=== PATIENT | male | born 1965 | race African-American/Black ===

== ENCOUNTER 2019-09-12 09:26 | Outpatient (CLI) | payer OTHER ==
[2019-09-12] MEDS ORDERED: Magnevist 469MG/ML 20 ML VIAL ONE (11:37)
--- NOTE | 2019-09-12 12:23 | MRI ---
MRI Pelvis W WO Con History: C 59 prostate cancer. Comparison: None. Findings: Multiplanar multisequence MRI of the prostate was performed prior to and after the intraven ous ministration of contrast. The exam was reviewed on an independent 3-D workstation. The prostate measures 4.7 x 3.7 x 3.5 cm for a volume of 30.6 cc. Peripheral zone: There are no abnormal foci of diffusion restriction. Transitional zone: No abnormal lentiform focus of T2 signal abnormality. Prostatic capsule: Intact Neurovascular bundles: Intact Urinary bladder: Mildly trabeculated. Seminal vesicles: Intact Bones: On the large [id number] T1 weighted sequence there are no abnormal foci of marrow signal re placement to suggest osseous metastatic disease. Moderate degenerative changes of the pubic symphysis. Impression: 1. PI-RADS Category 2: Low (clinically significant prostate cancer is unlikely to be present). 2. Intact prostate capsule and neurovascular bundles. 3. No evidence for locoregional osseous or lymphatic metastatic disease.
== END 2019-09-12 09:27 | disposition home or self-care (01) ==
LOC: TBSIIMAG 09:26
PROVIDERS: ATTEND Urology
DX: C61 Malignant neoplasm of prostate (principal)
CPT/HCPCS: 72197; A9579

== ENCOUNTER 2019-11-22 14:46 | Observation (INO) | payer OTHER ==
--- NOTE | 2019-11-22 15:12 | RAD ---
Exam: Chest one view HISTORY:Chest pressure Comparison: None FINDINGS: Cardiac silhouette: Normal Aorta: Unremarkable Pulmonary vessels: Normal Costophrenic angles: Clear LUNGS: No masses or consolidation. Pneumothorax: None Osseous abnormalities: None IMPRESSION: No acute cardiopulmonary process.
[2019-11-22 15:13] LABS: #Basophils 0.1 thou/uL (0.0-0.2); #Eosinphils 0.2 thou/uL (0.0-0.7); #Lymphocytes 1.2 thou/uL (1.20-3.40); #Monocytes 0.6 thou/uL (0.11-0.59); #Neutrophils 4.2 thou/uL (1.40-6.50); %Basophils 1.3 % (0.0-1.0); %Eosinophils 2.6 % (0.0-10.0); %Lymphocytes 19.8 % (21.0-51.0); %Neutrophils 67.3 % (42.0-75.0); Hemoglobin 13.1 g/dL (14.0-18.0); Mean Corpuscular HGB CONC 33.1 g/dL (32.0-36.0); Mean Corpuscular Hemoglobin 29.8 pg (27.0-31.0); Mean Corpuscular Volume 89.9 fL (78.0-98.0); Mean Platelet Volume 7.6 fL (7.4-10.4); Platelet Count 216 thou/uL (130-400); RBC Distribution Width 13.1 % (11.5-14.5); Red Blood Cell (RBC) Count 4.39 mill/uL (4.70-6.10); White Blood Cell (WBC) Count 6.2 thou/uL (4.8-10.8)
[2019-11-22 15:34] LABS: ALT (SGPT) 25 U/L (8-55); AST (SGOT) 27 U/L (5-34); Albumin 4.2 g/dL (3.5-5.0); Alkaline Phosphatase 50 U/L (40-110); Anion Gap 12 mmol/L (10-20); BUN (Urea Nitrogen) 12 mg/dL (8.4-25.7); Bilirubin, Total 0.4 mg/dL (0.2-1.2); CK (CPK) 248 U/L (30-200); Calc. Creatinine Clearance 0 mL/min (70-130); Calcium 9.4 mg/dL (7.8-10.44); Carbon Dioxide 26 mmol/L (22-29); Chloride 103 mmol/L (98-107); Estimated GFR-MDRD 81; Globulin 3.1 g/dL (2.4-3.5); Glucose 110 mg/dL (70-105); Lipase 77 U/L (8-78); Potassium 4.3 mmol/L (3.5-5.1); Protein, Total 7.3 g/dL (6.0-8.3); Sodium 137 mmol/L (136-145)
[2019-11-22] MEDS ORDERED: Acetaminophen 325 MG TAB PO PRN ×2 (18:27→19:00)
[2019-11-22] MEDS ORDERED: Ondansetron PF 4 MG/2 ML Vial IVP PRN ×2 (18:27→19:00)
[2019-11-22] MEDS ORDERED: Ondansetron ODT 4 MG TAB SL PRN (18:27)
[2019-11-22 18:33] LABS: Troponin I Less than 0.010 ng/mL (< 0.028)
[2019-11-22 18:59] VITALS: BMI 23.4
[2019-11-22] MEDS ORDERED: Loperamide HCl 2 MG CAP PO PRN (19:00)
[2019-11-22] MEDS ORDERED: Calcium Carbonate 500 MG ChewTAB PO PRN (19:00)
[2019-11-22] MEDS ORDERED: HYDROcodone/Acetaminophen 5/325 mg Tablet PO PRN (19:00)
[2019-11-22] MEDS ORDERED: Bisacodyl 5 MG TAB PO PRN (19:00)
[2019-11-22] MEDS ORDERED: Ondansetron ODT 4 MG TAB PO PRN (19:00)
[2019-11-22] MEDS ORDERED: Labetalol HCl 100 MG/20 ML VIAL SLOW IVP PRN (19:02)
[2019-11-22] MEDS ORDERED: Morphine 2 MG/ML SYRINGE SLOW IVP PRN (19:02)
[2019-11-22] MEDS ORDERED: Benzonatate 100 MG CAP PO PRN (19:02)
[2019-11-22] MEDS ORDERED: Docusate 100 MG CAP PO PRN (19:02)
[2019-11-22] MEDS ORDERED: diphenhydrAMINE 25 MG CAP PO PRN (19:02)
[2019-11-22] MEDS ORDERED: Melatonin 3 MG TAB PO PRN (19:02)
[2019-11-22] MEDS: Nitroglycerin 2% Ointment 1 INCH/1 GM Packet TOP SCH (19:42)
--- NOTE | 2019-11-22 20:06 | PDOC.HHP ---
Hospitalist HPI - History of Present Illness Chest pain History of Present Illness: Very pleasant 52-year-old gentleman with past medical history of hypertension presents with chest pain. Patient states that he was at work when he started developing chest pain. Chest pain is midsternal and there was some radiation to the arm. Patient had associated diaphoresis. Patient had associated nausea and he did vomit. Patient states that he felt like the pain was like something heavy was sitting on his chest. Also of note patient has a strong family history of coronary artery disease with his sister at bedside who had coronary artery bypass grafting in her early 50s. Patient's parent also had heart disease. Patient has had nuclear medicine stress test in the past, several years ago. Patient has never had cardiac catheterization, has never had a stent placed. With elevated risk factors, the patient recommended for overnight monitoring in the medical unit with telemetry and the nuclear medicine stress test in a.m. Echocardiogram ordered to evaluate for structural changes of heart and valvular pathology. Hospitalist ROS - Review of Systems All other systems reviewed; all pertinent +/- noted in HPI/Subj - Medication Medications: Active Medications Generic Name Dose Route Start Last Admin Trade Name Freq PRN Reason Stop Dose Admin Nitroglycerin 1 inch 11/22/19 18:30 11/22/19 19:42 Nitro-Bid 2% Ointment TOP 11/23/19 04:50 Not Given Q8H [facility] Hospitalist History - Past Medical History Source: patient, family Cardiac: reports: HTN - Family History Family History: reports: cancer, cardiac disorder - Social History Smoking Status: Never smoker Tobacco Type: snuff (daily) Alcohol: reports: Heavy (daily 6 beers per day) Drugs: reports: none Living Situation: With Family Domestic Violence: Negative Activity level: independent ambulation - Exam General Appearance: NAD, awake alert Eye: PERRL, anicteric sclera ENT: normocephalic atraumatic, moist mucosa Neck: supple, symmetric, no lymphadenopathy Heart: RRR, no murmur, no gallops, no rubs, normal peripheral pulses Respiratory: CTAB, no wheezes, no rales, no ronchi, normal chest expansion, no tachypnea Gastrointestinal: soft, non-tender, non-distended, no bruit, no guarding Extremities: no edema Skin: no lesions, no rashes Neurological: cranial nerve grossly intact, no focal deficits Musculoskeletal: normal tone, normal strength Psychiatric: normal affect, normal behavior, A&O x 3 Hospitalist Results - Labs Result Diagrams: 11/22/19 15:11/22/19 15: Lab results: WBC 6.2 thou/uL (4.8-10.8) 11/22/19 15: Hgb 13.1 g/dL (14.0-18.0) L 11/22/19 15: Hct 39.4 % (42.0-52.0) L 11/22/19 15: MCV 89.9 fL (78.0-98.0) 11/22/19 15: Plt Count 216 thou/uL (130-400) 11/22/19 15: Neutrophils % 67.3 % (42.0-75.0) 11/22/19 15: Sodium 137 mmol/L (136-145) 11/22/19 15: Potassium 4.3 mmol/L (3.5-5.1) 11/22/19 15: Chloride 103 mmol/L (98-107) 11/22/19 15: Carbon Dioxide 26 mmol/L (22-29) 11/22/19 15: BUN 12 mg/dL (8.4-25.7) 11/22/19 15: Creatinine 1.13 mg/dL (0.7-1.3) 11/22/19 15: Glucose 110 mg/dL (70-105) H 11/22/19 15: Calcium 9.4 mg/dL (7.8-10.44) 11/22/19 15: Total Bilirubin 0.4 mg/dL (0.2-1.2) 11/22/19 15: AST 27 U/L (5-34) 11/22/19 15: ALT 25 U/L (8-55) 11/22/19 15: Alkaline Phosphatase 50 U/L (40-110) 11/22/19 15: Creatine Kinase 248 U/L (30-200) H 11/22/19 15: Troponin I Less than 0.010 ng/mL (< 0.028) 11/22/19 18:01 Serum Total Protein 7.3 g/dL (6.0-8.3) 11/22/19 15:01 Albumin 4.2 g/dL (3.5-5.0) 11/22/19 15:01 Lipase 77 U/L (8-78) 11/22/19 15:01 - Radiology Interpretation Chest x-ray Status: image reviewed by mt Hospitalist H&P A/P - Problem (1) Chest pain Code(s): R07.9 - CHEST PAIN, UNSPECIFIED Status: Acute (2) HTN (hypertension) Code(s): I10 - ESSENTIAL (PRIMARY) HYPERTENSION Status: Acute (3) Alcohol abuse Code(s): F10.10 - ALCOHOL ABUSE, UNCOMPLICATED Status: Acute - Plan Plan: Plan: admit to medical unit with telemetry nuclear medicine stress test to rule out reversible ischemia echocardiogram to evaluate for structural changes and valvular pathology morphine, oxygen, nitrates, aspirin Continuous telemetry to monitor for arrhythmia continue home lisinopril schedule Valium to avoid alcohol withdrawal complications, no signs of withdrawl currently blood pressure control blood sugar control G.I. prophylaxis DVT prophylaxis
[2019-11-22] MEDS: Diazepam 5 MG TAB PO SCH (20:39)
[2019-11-22] MEDS: Famotidine 20 MG TAB PO SCH (20:39)
[2019-11-22 20:59] LABS: Troponin I Less than 0.010 ng/mL (< 0.028)
[2019-11-23] MEDS: Nitroglycerin 2% Ointment 1 INCH/1 GM Packet TOP SCH (03:25)
[2019-11-23] MEDS ORDERED: Lisinopril 20 MG TAB PO SCH (09:00)
[2019-11-23] MEDS ORDERED: Aspirin 81 mg Enteric Coated Tablet PO SCH (09:00)
--- NOTE | 2019-11-23 09:11 | PDOC.HOSPP ---
- Subjective Encounter Date: 11/23/19 Encounter Time: 14:00 Subjective: Patient without any N/V/chest pressure today. Feeling fine. Symptoms started with N/V after eating a sausage roll yesterday. - Objective Vital Signs & Weight: Vital Signs (12 hours) Temp Pulse Resp BP BP Pulse Ox 11/23/19 07:18 98.1 F 68 18 125/56 L 97 11/23/19 03:30 98.1 F 62 16 121/61 98 11/22/19 23:10 98.7 F 79 15 130/64 100 Weight Weight 182 lb 14.4 oz I&O: 11/22/19 11/23/19 11/24/19 06:59 06:59 06:59 Intake Total 480 Balance 480 Result Diagrams: 11/22/19 15:01 11/22/19 15:01 Hospitalist ROS - Review of Systems Constitutional: denies: fever, chills Respiratory: denies: cough, shortness of breath Cardiovascular: denies: chest pain, palpitations, orthopnea Gastrointestinal: denies: nausea, vomiting, abdominal pain, diarrhea - Medication Medications: Active Medications Generic Name Dose Route Start Last Admin Trade Name Freq PRN Reason Stop Dose Admin Famotidine 20 mg 11/22/19 21:00 11/22/19 20:39 Pepcid PO 20 mg BID GAETANO Administration - Exam General Appearance: NAD, awake alert ENT: moist mucosa Heart: RRR, no murmur, no gallops, no rubs Respiratory: CTAB, no wheezes, no rales, no ronchi Gastrointestinal: soft, non-tender, non-distended, normal bowel sounds Musculoskeletal: normal tone, normal strength Psychiatric: normal affect, normal behavior, A&O x 3 Hosp A/P (1) Chest pain Code(s): R07.9 - CHEST PAIN, UNSPECIFIED Status: Acute (2) Alcohol abuse Code(s): F10.10 - ALCOHOL ABUSE, UNCOMPLICATED Status: Chronic (3) HTN (hypertension) Code(s): I10 - ESSENTIAL (PRIMARY) HYPERTENSION Status: Chronic (4) Tobacco abuse Code(s): Z72.0 - TOBACCO USE Status: Chronic - Plan Stress test negative this AM ECHO normal ASE protocol for hx 6 beer/day drinker Recommend stopping snuff Suspect food poisoning. I will start him on daily aspirin due to risk factors. PPI for a couple weeks. F/u PCP. D/C Home. GI Proph: Pepcid DVT Proph: SCDs
[2019-11-23] MEDS ORDERED: Diazepam 5 MG TAB PO PRN (09:21)
[2019-11-23] MEDS ORDERED: Diazepam 5 MG TAB PO SCH (09:30)
[2019-11-23] MEDS ORDERED: Thiamine HCl 200 MG/2 ML VIAL IM SCH (09:30)
[2019-11-23] MEDS: Famotidine 20 MG TAB PO SCH (13:26)
[2019-11-23 13:29] VITALS: BP 146/70
[2019-11-23] MEDS: Diazepam 5 MG TAB PO SCH (13:36)
[2019-11-23 13:39] VITALS: TEMP 98.5
--- NOTE | 2019-11-23 13:41 | NM ---
EXAM: CARDIAC SPECT HISTORY: Chest pain, hypertension TECHNIQUE: A myocardial perfusion scan was performed using the single isotope 1 day protocol with rashida hnetium 99m sestamibi. [10 mCi] was injected intravenously for the rest exam followed by 30 mCi for the stress study. Exercise stress was monitored and interpreted by Dr. Matthews FINDINGS: Homogeneous tracer distribution is seen in the myocardial segments on stress and rest image s without fixed or reversible defects. Gated SPECT LVEF: 65% Wall motion exam: Normal IMPRESSION: Normal myocardial perfusion scan
[2019-11-24] MEDS ORDERED: Diazepam 5 MG TAB PO PRN (04:00)
--- NOTE | 2019-11-24 05:21 | DIS ---
DATE OF ADMISSION: 11/22/2019 DATE OF DISCHARGE: 11/23/2019 PRIMARY CARE PHYSICIAN: Cassie Silva. REASON FOR ADMISSION: Chest pain with nausea and vomiting. DIAGNOSES AT DISCHARGE: 1. Chest pain, resolved. 2. Nausea and vomiting, resolved, likely food poisoning. 3. Hypertension. 4. Non-smoking tobacco abuse. 5. Alcohol abuse. PROCEDURES: 1. Nuclear medicine stress testing showing normal myocardial perfusion scan. 2. Echocardiogram showing ejection fraction of 55% to 60%. Normal echo. CONSULTATIONS: None. SUMMARY OF HOSPITAL COURSE: This is a 54-year-old male who started to feel kind of bad after he ate a sausage roll that he had bought in the morning for lunch and he was at work and just felt a little bad and then later ate some pizza and then he started feeling nauseated. He vomited all the food back up. He started having some chest pressure and pain did radiate some to his arm and he had diaphoresis. He does have a strong family history of coronary artery disease. He was brought to the emergency room, had resolution of all of his pain in the emergency room. He was monitored overnight on the heart monitor without any abnormalities. He had a nuclear medicine stress test without results. The patient was back to his baseline on the day of discharge and is being discharged home. DISCHARGE MANAGEMENT: Discharged home. FOLLOWUP: Follow up with primary care doctor in next 7 days. ACTIVITY: As tolerated. DIET: Healthy-heart diet. MEDICATIONS: 1. Aspirin 81 mg daily, 30 tablets dispensed. 2. Omeprazole 20 mg daily, 14 caps dispensed. 3. Lisinopril/hydrochlorothiazide 20/12.5 mg one tablet daily. 4. Ibuprofen as needed for pain. 5. Tylenol with codeine as needed for pain. I counseled the patient to stop the use of snuff as it will put him at further risk of heart disease. Job ID: [id number]
[2019-11-24] MEDS ORDERED: Multivitamin W/ Minerals 1 TAB PO SCH (09:00)
[2019-11-24] MEDS ORDERED: Magnesium Oxide 400 MG TAB PO SCH (09:00)
[2019-11-24] MEDS ORDERED: Thiamine 100 MG TAB PO SCH (09:00)
[2019-11-24] MEDS ORDERED: Folic Acid 1 MG TAB PO SCH (09:00)
== END 2019-11-23 15:32 | disposition home or self-care (01) ==
LOC: ERS 14:46 → 2SW 17:07
PROVIDERS: ADMIT Internal Medicine; ATTEND Internal Medicine
DX: R07.89 Other chest pain (principal); R11.2 Nausea with vomiting, unspecified; I10 Essential (primary) hypertension; F17.290 Nicotine dependence, other tobacco product, uncomplicated; F10.10 Alcohol abuse, uncomplicated; Z85.46 Personal history of malignant neoplasm of prostate; Z82.49 Family history of ischemic heart disease and other diseases of the circulatory system; Z79.82 Long term (current) use of aspirin; Z79.899 Other long term (current) drug therapy
CPT/HCPCS: 36415; 71045; 78452; 80053; 80061; 82550; 83690; 84484; 85025; 93005; 93017; 93306; 94760; A9500; G0378

== ENCOUNTER 2021-05-09 09:46 | Outpatient (CLI) | payer OTHER | END 2021-05-09 09:47 | disposition home or self-care (01) | LOC: BICCT 09:46 | PROVIDERS: ATTEND Physician Assistant | DX: M47.22 Other spondylosis with radiculopathy, cervical region (principal); M54.2 Cervicalgia; Z98.1 Arthrodesis status | CPT/HCPCS: 72050; 72125; 72141 ==

== ENCOUNTER 2022-06-12 13:12 | Outpatient (CLI) | payer OTHER | END 2022-06-12 13:13 | disposition home or self-care (01) | LOC: CT 13:12 | PROVIDERS: ATTEND Surgery | DX: M48.02 Spinal stenosis, cervical region (principal); M47.812 Spondylosis without myelopathy or radiculopathy, cervical region; M47.813 Spondylosis without myelopathy or radiculopathy, cervicothoracic region; Z98.1 Arthrodesis status | CPT/HCPCS: 72125; 72141 ==

== ENCOUNTER 2022-12-03 13:55 | Outpatient (CLI) | payer OTHER ==
[~2022-12-03 13:55] MED LIST: Magnevist 469MG/ML 20 ML VIAL ONE
== END 2022-12-03 13:56 | disposition home or self-care (01) ==
LOC: TBSIIMAG 13:55
PROVIDERS: ATTEND Urology
DX: C61 Malignant neoplasm of prostate (principal)
CPT/HCPCS: 72197

== ENCOUNTER 2024-12-01 11:05 | Outpatient (CLI) | payer OTHER | END 2024-12-01 11:06 | disposition home or self-care (01) | LOC: BICRAD 11:05 | PROVIDERS: ATTEND Family Medicine | DX: R06.02 Shortness of breath (principal) | CPT/HCPCS: 71046 ==

== ENCOUNTER 2025-08-01 11:38 | Outpatient (CLI) | payer OTHER | END 2025-08-01 11:39 | disposition home or self-care (01) | LOC: BICRAD 11:38 | PROVIDERS: ATTEND Family Medicine | DX: J18.0 Bronchopneumonia, unspecified organism (principal); J18.9 Pneumonia, unspecified organism; M54.2 Cervicalgia; M19.90 Unspecified osteoarthritis, unspecified site; M47.812 Spondylosis without myelopathy or radiculopathy, cervical region; Z98.1 Arthrodesis status | CPT/HCPCS: 71046; 72040 ==

== ENCOUNTER 2025-10-10 10:06 | Outpatient (CLI) | payer OTHER | END 2025-10-10 10:07 | disposition home or self-care (01) | LOC: BICRAD 10:06 | PROVIDERS: ATTEND Family Medicine | DX: M54.50 Low back pain, unspecified (principal); M19.90 Unspecified osteoarthritis, unspecified site | CPT/HCPCS: 72100 ==